=== PATIENT | male | born 1965 | race Caucasian/White ===

== ENCOUNTER 2023-12-11 15:44 | Outpatient (CLI) | payer BC, SELFPAY ==
[2023-12-11 11:09] LABS: Kit/Specimen SENT
[2023-12-11 11:17] LABS: Abs Immature Grans 0.01 10^3/uL (0.0-0.06); Absolute Basophil Count 0.03 10^3/uL (0.0-0.2); Absolute Lymphocyte Count 1.77 10^3/uL (1.2-3.4); Absolute Monocyte Count 0.39 10^3/uL (0.1-0.8); Absolute Neutrophil Count 3.12 10^3/uL (1.2-6.7); Basophils % 0.6 %; Eosinophils % 1.8 %; HCT 46.8 % (40.0-50.0); HGB 16.6 g/dL (13.5-17.5); Immature Grans % 0.2 %; Lymphocytes % 32.7 %; MCHC 35.5 % (32.0-36.0); MCV 87 fL (80-95); MPV 9.7 fL (8.0-11.0); Monocytes % 7.2 %; Neutrophils % 57.5 %; Platelet Count 211 10^3/uL (130-400); RBC 5.36 10^6/uL (4.36-5.78); RDW 12.8 % (11.8-14.1); RDW-SD 39.8 fL; WBC 5.42 10^3/uL (4.4-10.8)
[2023-12-11 11:19] LABS: ESR 2 mm/hr (0-20)
[2023-12-11 11:25] LABS: Bacteria Negative HPF (Negative); C & S Indicated? No; Casts Negative LPF (Negative); Crystals Negative HPF (Negative); Epithelial Cells Rare HPF (Negative); Mucus Negative (Negative); RBC Negative HPF (0-2); WBC Negative HPF (0-5)
[2023-12-11 11:31] LABS: Hemoglobin A1C 8.8 % (<5.7)
[2023-12-11 12:05] LABS: Iron 96 ug/dL (65-175); Total Iron Binding Capacity 312 ug/dL (250-450); Transferrin Sat 31 % (20-55)
[2023-12-11 12:32] LABS: ALT 46 U/L (16-63); AST 14 U/L (15-37); Albumin 3.8 g/dL (3.4-5.0); Alkaline Phosphatase 68 U/L (46-116); Anion Gap 8.5 mmol/L (3-11); BUN 11 mg/dL (7-18); Bilirubin, Total 1.32 mg/dL (0.2-1.0); CO2 28.5 mmol/L (21.0-32.0); CREATININE 0.8 mg/dL (0.70-1.30); Calcium 9.2 mg/dL (8.5-10.1); Calculated LDL 77 mg/dL (<100); Chloride 100 mmol/L (98-107); Cholesterol 155 mg/dL (<200); Estimated GFR 103.87 (mL/min/1.73m2); Ferritin 410 ng/mL (26-388); Glucose 232 mg/dL (74-106); HDL Cholesterol 69 mg/dL (40-60); Potassium 4.4 mmol/L (3.5-5.1); Sodium 137 mmol/L (136-145); Total Protein 6.9 g/dL (6.4-8.2); Triglyceride 47 mg/dL (<150); Vitamin B12 305 pg/mL (193-986)
[2023-12-11 12:35] LABS: Vitamin D 25 Total 36.4 ng/mL (30-100)
[2023-12-11 12:37] LABS: Folate > 20.0 ng/mL (8.6-20.0)
[2023-12-11 12:48] LABS: C-Reactive Protein < 0.50 mg/dL (<or=0.5)
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
--- OUTSIDE RECORDS SUMMARY | 2023-12-11 15:47 | XMS_ITS | Continuity of Care Document ---
Author Organization [place] - [facility], MAIN OFFICE [place] [address] Assessment Encounter Date Assessment Date Assessment LastModified by Organization Details LastModified Time 12/11/2023 12/11/2023 compounding pharmacy [facility] - 6 months ago- and didnt help [...] available Lab lipid panel, serum 2023 024 [facility] [address] [place] [address] [place], [address], 12/11/2023 09:40:28 homocyste ine, serum or plasma 2023 024 [facility] [address] [place] [address] [place], [address], 12/11/2023 09:40:28 lipoprote in (A), serum 2023 024 [facility] [address] [place] [address] [place], [address], 12/11/2023 09:40:27 urinalysi s, microscop ic 2023 024 [facility] [address] [place] [address] [place], [address], 12/11/2023 09:40:27 CBC w/ diff 2023 024 [facility] [address] [place] [address] [place], [address], 12/11/2023 09:40:28 vitamin B12 + folate, serum or blood 2023 024 [facility] [address] [place] [address] [place], [address], 12/11/2023 09:40:29 C-reactiv e protein, quantitat joy, serum or plasma 2023 024 [facility] [address] [place] [address] [place], [address], 12/11/2023 09:40:27 ESR (erythroc yte sedimenta tion rate), blood 2023 024 [facility] [address] [place] [address] [place], [address], 12/11/2023 09:40:28 iron + TIBC + ferritin, serum 2023 024 [facility] [address] [place] [address] [place], [address], 12/11/2023 09:40:28 hemochrom atosis mutation (hfe), blood/tis alice 2023 024 [facility] [address] [place] [address] [facility] [place], [address], 12/11/2023 09:40:29 CMP, serum or plasma 2023 024 [facility] [address] [place] [address] [place], [address], 12/11/2023 12:38:43 zinc, serum or plasma 2023 024 [facility] ([facility]), [address] [place] [address] [place], [address], 12/11/2023 09:40:28 vitamin B6 (pyridoxi ne), plasma 2023 024 [facility] [address] [place] [address] [place], [address], 12/11/2023 09:40:28 vitamin B1 (thiamine ), blood 2023 024 [facility] [address] [place] [address] [place], [address], 12/11/2023 09:40:27 HbA1c (hemoglob in A1c), blood 2023 024 [facility] [address] [place] [address] [place], [address], 12/11/2023 09:40:28 vitamin D, 25-hydrox y, total, serum 2023 024 [facility] [address] [place] [address] [place], [address], 12/11/2023 12:38:48 vitamin A (retinol) , serum 2023 024 [facility] [address] [place] [address] [place], [address], 12/11/2023 09:40:28 testoster one, free + total, serum 2023 024 [facility] ([facility]), [address] [place] [address] [place], [address], 12/11/2023 09:40:27 dhea-sulf ate, serum 2023 024 [facility] ([facility]), [address] [place] [address] [place], [address], 12/11/2023 09:40:28 Referral None recorded. Procedures None recorded. Surgeries None recorded. Imaging None recorded. Medication Orders None recorded. Patient TargetsNo targets recorded. Patient Instructions Encounter Date Encounter Id Patient Instructions Last Modified By Organization Details Last Modified Time 12/11/2023 [id number] dry skin: care instructions Not available 12/11/2023 09:38:21 testicular pain: care instructions Not available 12/11/2023 09:38:21 1. blood work at [facility] along with MDL kit- this can drawn [...] testicle Active 12/11/19 24 Nikki Stewart ND [address] [place] [address], [phone], [facility] 12/11/2023 08:17:03 Type 2 diabetes mellitus well controlled Active 12/11/19 24 Nikki Stewart ND [address] [place] [address], [phone], [facility] 12/11/2023 08:17:32 Serum ferritin above reference range Active 12/11/19 24 Nikki Stewart ND [address] [place] [address], [phone], [facility] 12/11/2023 08:53:08 Fatigue Active 12/11/19 24 Nikki Stewart ND [address] [place] [address], [phone], [facility] 12/11/2023 08:57:37 Pruritic rash Active 12/11/19 24 Nikki Stewart ND [address] [place] [address], [phone], [facility] 12/11/2023 09:02:22 Dry skin dermatitis Active 12/11/19 24 Nikki Stewart [address], [address], [facility] 12/11/2023 09:17:12 Nail changes Active 12/11/19 24 Nikki Stewart [address], [phone], [facility] 12/11/2023 09:17:55 Vitamin D deficiency Active 12/11/19 24 Nikki Stewart ND [address] [place] [address], [phone], [facility] 12/11/2023 09:20:11 Abnormal urine odor Active 12/11/19 24 Nikki Stewart [address], [address], [facility] 12/11/2023 09:31:12 Vitamin B12 deficiency (non anemic) Active 12/11/19 24 Nikki Stewart [address], [address], [facility] 12/11/2023 09:33:03 Idiopathic peripheral neuropathy Active 12/11/19 24 Nikki Stewart [address], [address], [facility] 12/11/2023 09:33:59 Pain of left shoulder joint Active 12/11/[address], [address], [facility] 12/11/2023 09:34:45 Problem Notes None [...] Not Available Not Available BD Regular Bevel [place] 25 gauge x 5/8 active Not Available Not Available Not Available BD Ultra-Fine Short Pen Needle 31 gauge x 5/16 active Not Available Not Available Not Available BD Luer-Luzmaria Syringe 1 mL active Not Available Not Available Not Available BD Regular Bevel [place] 21 gauge x 1 active Not Available [...] Address Organization Details Last Updated DateTime 12/11/2023 42971.51 g 29.6 kg/m2 172.72 cm Nikki Stewart ND [address] [place], [address], [facility] 12/11/2023 08:03:25 Social History None recorded. Functional Status None recorded. Mental Status None recorded. Family History Nothing Reported. Medical History No medical history recorded. Past Encounters Encounter ID Performer Location Encounter Start Date Encounter Closed Date Diagnosis/Indication Diagnosis SNOMED-CT Code [id number] Nikki Stewart ND MAIN OFFICE [address] [place] [phone] 12/11/2023 08:02:00 12/11/2023 14:07:12 Pain in testicle 93750961 Type 2 angi betes mellitus well controlled 260054373 Serum ferr itin above reference range 691713156 Fatigue 18790780 Pruritic rash 14114474 Dry skin dermatitis 2600 17437 Nail changes 932206788 Vitamin D deficiency 347 45487 Abnormal urine odor 8769 003 Vitamin B1 2 deficiency (non anemic) 27042281 Idiopathic peripheral neuropathy 36898013 Pain of le ft shoulder joint 993435606511975 09 Hyperlipid emia screening 434301366 Health Concerns Section Related Observation LastModified by Organization Detai ls LastModified Time None Recorded Concern Status LastModified by Organization Details LastModified Time None Recorded Payers Encounter Date Sequence Insurance Name Policy Number Policy Lezama Covered Member ID Lezama Member ID Guarantor Name 12/11/2023 1 [place] [employer] Dwain Ring [id number] Dwain Ring Notes Date Note Type Note Provider Name and Address Organization Details Recorded Time 12/11/2023 text/html HPI Notes: rakan s been in pain and not sleeping well for 30 yrs- he was tested [place] [facility] [place]- he has 8 lines [...] 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 [facility] he took tons of antibiotics and one pill made in [place] he couldnt get off couch and [...] and his was swelling and 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
[2023-12-12 10:22] LABS: DHEA Sulfate 58 ug/dL (49-362)
[2023-12-13 12:46] LABS: Lipoprotein (a) 13 nmol/L (<75)
[2023-12-13 12:58] LABS: Zinc, S 87 mcg/dL (60-106)
[2023-12-14 08:53] LABS: Result Summary NEGATIVE; Specimen WB Whole Blood
[2023-12-14 12:51] LABS: Free Retinol (Vitamin A) 64.9 mcg/dL (32.5-78.0)
[2023-12-14 23:31] LABS: Thiamine (Vitamin B1), WB 117 nmol/L (70-180)
[2023-12-23 16:14] LABS: Testosterone, Free 11.7 ng/dL (3.87-14.7); Testosterone, Total 561 ng/dL (240-950)
== END 2023-12-11 15:45 | disposition home or self-care (01) ==
LOC: LBO 15:44
PROVIDERS: Visit Provider Naturopath
DX: R77.8 Other specified abnormalities of plasma proteins (principal); N50.819 Testicular pain, unspecified; E11.9 Type 2 diabetes mellitus without complications; R53.83 Other fatigue; E55.9 Vitamin D deficiency, unspecified; R82.90 Unspecified abnormal findings in urine; G60.9 Hereditary and idiopathic neuropathy, unspecified; M25.512 Pain in left shoulder; Z13.220 Encounter for screening for lipoid disorders; L60.9 Nail disorder, unspecified; E53.8 Deficiency of other specified B group vitamins
CPT/HCPCS: 80053; 80061; 81256; 82306; 82627; 83090; 83695; 84402; 84403; 84630; 85652; 81015; 82607; 82728; 82746; 83036; 83540; 83550; 84207; 84425; 84590; 85025; 86140

== ENCOUNTER 2024-01-02 03:38 | Outpatient (CLI) | payer BC, SELFPAY ==
[2024-01-07 16:16] LABS: Pyridoxal 5-Phosphate (PLP), P 35 mcg/L (5-50)
== END 2024-01-02 03:39 | disposition home or self-care (01) ==
LOC: LBO 03:38
PROVIDERS: Visit Provider Naturopath
DX: R77.8 Other specified abnormalities of plasma proteins (principal); N50.819 Testicular pain, unspecified; R53.83 Other fatigue; E55.9 Vitamin D deficiency, unspecified; R82.90 Unspecified abnormal findings in urine; E53.8 Deficiency of other specified B group vitamins; G60.9 Hereditary and idiopathic neuropathy, unspecified; M25.512 Pain in left shoulder; Z13.220 Encounter for screening for lipoid disorders
CPT/HCPCS: 84207